=== PATIENT | male | born 1995 | race Caucasian/White ===

== ENCOUNTER 2018-10-30 08:08 | Emergency (ER) | payer OTHER ==
[2018-10-30] MEDS ORDERED: Tetan/Diph/Pertus SYR(Tdap)* 0.5 ML SYR(BOOSTRIX) use SYR IM ONE (09:44)
[2018-10-30 09:57] VITALS: BP 121/75
--- NOTE | 2018-10-30 12:09 | ED ---
Laceration/Wound HPI - HPI Summary HPI Summary: Patient is a 23-year-old male presenting to the ED with a laceration to the right palm of the hand from a piece of metal while willow. Tetanus is not UTD. Patient denies any pain. Bleeding is controlled on arrival, however after bandage is removed, bleeding continues. Laceration is 3 cm in length and irregular. - History of Current Complaint Stated Complaint: CUT ON HAND PER PT Time Seen by Provider: 10/30/18 08:14 Hx Obtained From: Patient Mechanism of Injury: Sharp/Blunt Trauma Onset/Duration: Sudden Onset Aggravating: Movement Alleviating: Compression Timing: Constant Onset Severity: Mild Current Severity: Mild Pain Intensity: 2 Pain Scale Used: 0-10 Numeric Associated Signs & Symptoms: Negative - Allergy/Home Medications Allergies/Adverse Reactions: Allergies Allergy/AdvReac Type Severity Reaction Status Date / Time Penicillins Allergy Anaphylatic Verified 10/30/18 08:14 Shock Home Medications: Home Medications NK [No Home Medications Reported] 10/30/18 [History Confirmed 10/30/18] PMH/Surg Hx/FS Hx/Imm Hx Previously Healthy: Yes - Immunization History Hx Pertussis Vaccination: No Immunizations Up to Date: Yes Infectious Disease History: No Infectious Disease History: Denies: Traveled Outside the [place] in Last 30 Days - Social History Occupation: Employed Full-time Lives: Alone Alcohol Use: None Hx Substance Use: No Substance Use Type: Reports: None Substance Use Comment - Amount & Last Used: chews tobacco Smoking Status (MU): Former Smoker Review of Systems Constitutional: Negative Negative: Fever, Chills, Fatigue, Skin Diaphoresis Negative: Palpitations, Chest Pain Negative: Shortness Of Breath, Cough Genitourinary: Negative Positive: no symptoms reported, see HPI Negative: Arthralgia, Myalgia Skin: Negative Positive: Other - irregular laceration Neurological: Negative All Other Systems Reviewed And Are Negative: Yes Physical Exam Triage Information Reviewed: Yes Vital Signs On Initial Exam: Initial Vitals Temp Pulse Resp BP Pulse Ox 98.2 F 85 16 133/88 97 10/30/18 08:09 10/30/18 08:09 10/30/18 08:09 10/30/18 08:09 10/30/18 08:09 Vital Signs Reviewed: Yes Appearance: Positive: Well-Appearing, Well-Nourished Skin: Positive: Skin Color Reflects Adequate Perfusion Head/Face: Positive: Normal Head/Face Inspection Eyes: Positive: EOMI, Conjunctiva Clear Neck: Positive: No Lymphadenopathy Respiratory/Lung Sounds: Positive: Clear to Auscultation Cardiovascular: Positive: RRR Musculoskeletal: Positive: Normal, Strength/ROM Intact Neurological: Positive: Speech Normal Psychiatric: Positive: Normal Procedures - Laceration/Wound Repair 1 Location: upper extremity Description: Irregular Anesthesia: Local Length, Depth and Shape: 3cm length, .2cm depth Betadine Prep?: No Irrigated w/ Saline (ccs): 60 Laceration/Wound Explored: clean Closure: Single Layer - 7 Suture Type: Prolene Number of Sutures: 7 Layer Closure?: No Sterile Dressing Applied?: Yes Diagnostics - Vital Signs Vital Signs Temp Pulse Resp BP Pulse Ox 10/30/18 09:56 98.8 F 87 16 121/75 98 10/30/18 08:09 98.2 F 85 16 133/88 97 - Laboratory Lab Statement: Any lab studies that have been ordered have been reviewed, and results considered in the medical decision making process. Laceration Repair Course/Dx - Course Course Of Treatment: On physical examination, there is a 3 cm irregular cruz- shaped laceration to the right palm of the hand over the thenar eminence. Patient denies any pain. Pressure applied on arrival and bleeding is well controlled. Cleanse wound thoroughly with chlorhexidine and normal saline. Jet irrigated. 7, 3-0 Prolene sutures placed. Telfa dressing applied and gauze wrap. Suture removal in 7 days. Tetanus updated. - Clinical Impression Provider Diagnoses: Laceration Discharge - Sign-Out/Discharge Documenting (check all that apply): Patient Departure Patient Received Moderate/Deep Sedation with Procedure: No - Discharge Plan Condition: Stable Disposition: HOME Patient Education Materials: Laceration (ED) Forms: *Work Release Referrals: No Primary Care Phys,NOPCP [Primary Care Provider] - Additional Instructions: Keep this dressing applied all day Cleanse wound thoroughly, using soap and water daily Gauze wrap prior to work, however otherwise please leave open to air Suture removal in 7 days - Billing Disposition and Condition Condition: STABLE Disposition: Home
== END 2018-10-30 09:56 | disposition home or self-care (01) ==
LOC: ED 08:08
DX: S61.411A Laceration without foreign body of right hand, initial encounter (principal); W26.9XXA Contact with unspecified sharp object(s), initial encounter; Y92.9 Unspecified place or not applicable; Z88.0 Allergy status to penicillin; Z87.891 Personal history of nicotine dependence
CPT/HCPCS: 12002; 90471; 90715; 99282

== ENCOUNTER 2018-11-06 15:56 | Emergency (ER) | payer OTHER ==
[2018-11-06 16:03] VITALS: BP 110/56
--- NOTE | 2018-11-06 16:41 | ED ---
Laceration/Wound HPI - HPI Summary HPI Summary: Patient is a 23-year-old male presenting to the ED with a laceration to the palmar right hand which occurred last week. Tetanus was updated. He is here for suture removal. He denies any redness, pain or drainage from the area. Denies any fevers, sweats, chills. He states he has full range of motion in the fingers and thumb. - History of Current Complaint Stated Complaint: STITCHES REMOVED FROM RT HAND PER PT Time Seen by Provider: 11/06/18 16:08 Hx Obtained From: Patient Mechanism of Injury: Sharp/Blunt Trauma Onset/Duration: Sudden Onset Aggravating: Movement Alleviating: Compression Timing: Constant Onset Severity: Mild Current Severity: Mild Pain Intensity: 0 Pain Scale Used: 0-10 Numeric Associated Signs & Symptoms: Negative Related Hx: Dominant Hand (Right) - Allergy/Home Medications Allergies/Adverse Reactions: Allergies Allergy/AdvReac Type Severity Reaction Status Date / Time Penicillins Allergy Anaphylatic Verified 11/06/18 16:03 Shock PMH/Surg Hx/FS Hx/Imm Hx Previously Healthy: Yes - Immunization History Hx Pertussis Vaccination: No Immunizations Up to Date: Yes Infectious Disease History: No Infectious Disease History: Denies: Traveled Outside the [place] in Last 30 Days - Social History Occupation: Employed Full-time Lives: With Family Alcohol Use: None Hx Substance Use: No Substance Use Type: Reports: None Substance Use Comment - Amount & Last Used: chews tobacco Hx Tobacco Use: Yes Smoking Status (MU): Former Smoker Review of Systems Constitutional: Negative Negative: Fever, Chills, Fatigue, Skin Diaphoresis Negative: Palpitations, Chest Pain Negative: Shortness Of Breath, Cough Negative: Arthralgia Skin: Negative, Other - no erythema Positive: Other - palmar laceration measuring 2.5cm with 7 sutures placed Neurological: Negative All Other Systems Reviewed And Are Negative: Yes Physical Exam Triage Information Reviewed: Yes Vital Signs On Initial Exam: Initial Vitals Temp Pulse Resp BP Pulse Ox 97.9 F 77 20 110/56 98 11/06/18 15:59 11/06/18 15:59 11/06/18 15:59 11/06/18 15:59 11/06/18 15:59 Vital Signs Reviewed: Yes Appearance: Positive: Well-Appearing, Well-Nourished Skin: Positive: Warm, Skin Color Reflects Adequate Perfusion, Other - palmar laceration measuring 2.5cm with 7 sutures placed Head/Face: Positive: Normal Head/Face Inspection Eyes: Positive: EOMI, Conjunctiva Clear Neck: Positive: Supple, No Lymphadenopathy Respiratory/Lung Sounds: Positive: Clear to Auscultation, Breath Sounds Present Cardiovascular: Positive: RRR, Pulses are Symmetrical in both Upper and Lower Extremities Musculoskeletal: Positive: Strength/ROM Intact Neurological: Positive: Speech Normal Psychiatric: Positive: Affect/Mood Appropriate AVPU Assessment: Alert Diagnostics - Vital Signs Vital Signs Temp Pulse Resp BP Pulse Ox 11/06/18 15:59 97.9 F 77 20 110/56 98 - Laboratory Lab Statement: Any lab studies that have been ordered have been reviewed, and results considered in the medical decision making process. Laceration Repair Course/Dx - Course Course Of Treatment: During the patient's course of treatment, sutures removed from the palmar side of the right hand. 7 sutures removed. Patient tolerated well. Steri-Strips applied. These will be taken off tomorrow. He is encouraged to cleanse the wound thoroughly continually with soap and water. - Clinical Impression Provider Diagnoses: Laceration Discharge - Sign-Out/Discharge Documenting (check all that apply): Patient Departure Patient Received Moderate/Deep Sedation with Procedure: No - Discharge Plan Condition: Stable Disposition: HOME Patient Education Materials: Stitches Removal (ED) Referrals: No Primary Care Phys,NOPCP [Primary Care Provider] - Additional Instructions: Keep the steri strips applied until tomorrow Gently peel away and continue to use soap and water over the area - Billing Disposition and Condition Condition: STABLE Disposition: Home
== END 2018-11-06 16:30 | disposition home or self-care (01) ==
LOC: ED 15:56
DX: S61.411D Laceration without foreign body of right hand, subsequent encounter (principal); W45.8XXD Other foreign body or object entering through skin, subsequent encounter; Z88.0 Allergy status to penicillin; Z87.891 Personal history of nicotine dependence